=== PATIENT | male | born 1960 | race Two or more races ===

== ENCOUNTER 2021-07-15 08:45 | Inpatient (IN) | payer OTHER ==
[~2021-07-15] VITALS: Ht 167.6 cm; Wt 74.4 kg
[2021-07-15] MEDS ORDERED: VYTORIN 10-101 EACH PO (08:48)
--- NOTE | 2021-07-15 08:50 | NUR ---
SE RECIBE PTE ALERTA Y ORIENTADO X3,EN [facility] POR DIVERTICULITIS,[facility].
--- NOTE | 2021-07-15 09:33 | NUR ---
PACIENTE EVALUDO POR EL DR. RAMÍREZ QUIEN ORDENA [place] MEDICO. SE ORIENTA A PACIENTE SOBRE EL MISMO REFIERE ENTENDER Y RN Zeke KLEIN EJECUTA ORDENES MEDICAS. PACIENTE LLEGA A ER PREVIAMENTE CANALIZADO DE HOS BERNIE TRAN IRMA EN ANTEBRAZO RT CON AGIO #18 SE OBSERVA PATENTE LEONARD DE EDEMAS Y ENROEJCIMIENTOS. SE ADMINISTRAN MEDICAMENTOS.
[2021-07-19] MEDS ORDERED: SUCRALFATE1 GM (08:32)
== END 2021-07-27 19:58 | disposition home or self-care (01) | DRG 392 ==
LOC: ER 08:45 → MEDI 10:29
PROVIDERS: ADMIT Internal Medicine; ATTEND Internal Medicine
PROC: 02HV33Z Insertion of Infusion Device into Superior Vena Cava, Percutaneous Approach (ICD-10-PCS; 2021-07-15)
PROC: 0W9J30Z Drainage of Pelvic Cavity with Drainage Device, Percutaneous Approach (ICD-10-PCS; principal; 2021-07-17)
PROC: 3E0436Z Introduction of Nutritional Substance into Central Vein, Percutaneous Approach (ICD-10-PCS; 2021-07-18)
PROC: BW21YZZ Computerized Tomography (CT Scan) of Abdomen and Pelvis using Other Contrast (ICD-10-PCS; 2021-07-24)
DX: K57.20 Diverticulitis of large intestine with perforation and abscess without bleeding (principal); K63.2 Fistula of intestine; B96.29 Other Escherichia coli [E. coli] as the cause of diseases classified elsewhere; E78.49 Other hyperlipidemia; Z20.822 Contact with and (suspected) exposure to COVID-19

== ENCOUNTER 2022-02-05 07:00 | Inpatient (IN) | payer OTHER ==
[~2022-02-05] VITALS: Ht 167.6 cm; Wt 68.0 kg
[~2022-02-05 07:00] MED LIST: SUCRALFATE1 GM; VYTORIN 10-101 EACH PO
[2022-02-12] MEDS ORDERED: CENTRUM ADULTS1 EACH (16:36)
[2022-02-12] MEDS ORDERED: VITAMIN C1000 MG (16:36)
[2022-02-12] MEDS ORDERED: PROBIOTIC1 EAC4 (16:37)
[2022-02-12] MEDS ORDERED: VITAMIN B122500 MCG (16:37)
[2022-02-12] MEDS ORDERED: VITAMIN D350 MC4 (16:39)
[2022-02-12] MEDS ORDERED: OMEGA-31000 MG (16:40)
[2022-02-15] MEDS ORDERED: PEPCID AC20 MG PO (08:55)
[2022-02-15] MEDS ORDERED: INTESTINEX680 M1 PO (08:55)
[2022-02-15] MEDS ORDERED: ULTRACET PO (08:55)
== END 2022-02-15 11:31 | disposition home or self-care (01) | DRG 331 ==
LOC: SURG 02-12 07:00 → O/R 02-12 09:43 → SURG 02-12 11:00 → SURH 02-12 18:35
PROVIDERS: ADMIT Surgery; ATTEND Surgery
PROC: 0DBP4ZZ Excision of Rectum, Percutaneous Endoscopic Approach (ICD-10-PCS; 2022-02-12)
PROC: 0DJD8ZZ Inspection of Lower Intestinal Tract, Via Natural or Artificial Opening Endoscopic (ICD-10-PCS; 2022-02-12)
PROC: 0DTN4ZZ Resection of Sigmoid Colon, Percutaneous Endoscopic Approach (ICD-10-PCS; principal; 2022-02-12 07:00)
DX: K57.30 Diverticulosis of large intestine without perforation or abscess without bleeding (principal); K66.0 Peritoneal adhesions (postprocedural) (postinfection); R10.32 Left lower quadrant pain

== ENCOUNTER 2022-03-18 06:22 | Emergency (ER) | payer OTHER ==
[~2022-03-18] VITALS: Ht 167.6 cm; Wt 67.1 kg
[~2022-03-18 06:22] MED LIST changes: +CENTRUM ADULTS1 EACH; +INTESTINEX680 M1 PO; +OMEGA-31000 MG; +PEPCID AC20 MG PO; +PROBIOTIC1 EAC4; +ULTRACET PO; +VITAMIN B122500 MCG; +VITAMIN C1000 MG; +VITAMIN D350 MC4
== END 2022-03-18 10:58 | disposition home or self-care (01) ==
LOC: ER 06:22
DX: K29.70 Gastritis, unspecified, without bleeding (principal); R10.9 Unspecified abdominal pain